=== PATIENT | female | born 1970 | race Asian ===

== ENCOUNTER → 2021-10-11 | Day surgery (SDC) | payer OTHER | END | disposition home or self-care (01) | LOC: FMAMMOTONE 10:42 | PROVIDERS: ATTEND Surgery | PROC: 0HBT3ZX Excision of Right Breast, Percutaneous Approach, Diagnostic (ICD-10-PCS; principal; 2021-10-11) | DX: D24.1 Benign neoplasm of right breast (principal); N60.91 Unspecified benign mammary dysplasia of right breast; N64.89 Other specified disorders of breast; R92.8 Other abnormal and inconclusive findings on diagnostic imaging of breast | CPT/HCPCS: 19081; 76098-TC-FY; 87899; 88305-TC; 88341-TC; 88342-TC; A4648 ==

== ENCOUNTER 2021-11-17 04:31 | Day surgery (SDC) | payer OTHER ==
[2021-11-16 15:26] VITALS: BMI 29.2
[2021-11-17] MEDS ORDERED: LIDOCAINE HCL 1%, 10 MG/ML (20ML VIAL) ONE (09:56)
[2021-11-17] MEDS ORDERED: MIDAZOLAM HCL 2 MG/2 ML SINGLE DOSE VIAL ONE ×2 (10:29)
[2021-11-17] MEDS ORDERED: PROPOFOL 20 ML ONE (10:29)
[2021-11-17] MEDS ORDERED: ceFAZolin SODIUM 1 GM VIAL IVPB ONE (10:48)
[2021-11-17] MEDS ORDERED: LIDOCAINE HCL 1%, 10 MG/ML (50 mL VIAL) INF ONE (10:53)
[2021-11-17] MEDS ORDERED: oxyCODONE HCL 5 MG TABLET PO PRN ×2 (11:44)
[2021-11-17] MEDS ORDERED: ONDANSETRON 4 MG/2 ML VIAL IVPUSH PRN (11:44)
[2021-11-17] MEDS ORDERED: LACTATED RINGERS SOLUTION 1,000 ML IV SCH (11:45)
[2021-11-17 14:04] VITALS: BP 140/83; PULSE 89; TEMP 97.6
== END 2021-11-17 14:30 | disposition home or self-care (01) ==
LOC: JASU-SURG 04:31
PROVIDERS: ATTEND Surgery
PROC: 0HBT0ZZ Excision of Right Breast, Open Approach (ICD-10-PCS; principal; 2021-11-17 10:00)
DX: D05.11 Intraductal carcinoma in situ of right breast (principal)
CPT/HCPCS: 19281; 76098-TC-FY; 81025; 88307-TC; 88341-TC; 88342-TC; 94760

== ENCOUNTER 2021-12-01 04:23 | Day surgery (SDC) | payer OTHER ==
[2021-11-30 17:33] VITALS: BMI 29.2
[2021-12-01] MEDS ORDERED: LIDOCAINE HCL 1%, 10 MG/ML (20ML VIAL) ONE ×2 (14:32→15:17)
[2021-12-01] MEDS ORDERED: PROPOFOL 20 ML ONE ×2 (14:59→15:25)
[2021-12-01] MEDS ORDERED: MIDAZOLAM HCL 2 MG/2 ML SINGLE DOSE VIAL ONE (15:00)
[2021-12-01] MEDS ORDERED: ceFAZolin SODIUM 1 GM VIAL ONE (15:03)
[2021-12-01] MEDS ORDERED: ceFAZolin 2 GRAM PREMIX BAG IVPB ONE (15:03)
[2021-12-01] MEDS ORDERED: LIDOCAINE HCL 1%, 10 MG/ML (20ML VIAL) INF ONE ×2 (15:04)
[2021-12-01] MEDS ORDERED: ONDANSETRON 4 MG/2 ML VIAL IVPUSH PRN (16:05)
[2021-12-01] MEDS ORDERED: PROMETHAZINE HCL 25 MG/1 ML VIAL IVPUSH PRN (16:05)
[2021-12-01] MEDS ORDERED: oxyCODONE HCL 5 MG TABLET PO PRN (16:05)
[2021-12-01] MEDS ORDERED: ACETAMINOPHEN 1000 MG/100 ML BAG IVPB ONE (16:06)
[2021-12-01] MEDS ORDERED: LACTATED RINGERS SOLUTION 1,000 ML IV SCH (16:15)
[2021-12-01 19:24] VITALS: BP 117/81; PULSE 83; TEMP 98
== END 2021-12-01 19:05 | disposition home or self-care (01) ==
LOC: JASU-SURG 04:23
PROVIDERS: ATTEND Surgery
PROC: 0HBT0ZZ Excision of Right Breast, Open Approach (ICD-10-PCS; principal; 2021-12-01 14:00)
DX: D05.11 Intraductal carcinoma in situ of right breast (principal)
CPT/HCPCS: 81025; 88304-TC; 88307-TC; 94760

== ENCOUNTER 2022-05-27 04:56 | Day surgery (SDC) | payer OTHER, BC ==
[2022-05-25 13:39] VITALS: BMI 29.2
[2022-05-27] MEDS ORDERED: LIDOCAINE 1%/EPI 1:100000 (20 ML MULTI DOSE VIAL) ONE (08:45)
[2022-05-27] MEDS ORDERED: MIDAZOLAM HCL 2 MG/2 ML SINGLE DOSE VIAL ONE (10:37)
[2022-05-27] MEDS ORDERED: PROPOFOL 20 ML ONE ×2 (10:44→11:03)
[2022-05-27] MEDS ORDERED: LIDOCAINE 1%/EPI 1:100000 (20 ML MULTI DOSE VIAL) IJ ONE ×2 (11:03)
[2022-05-27 12:36] VITALS: BP 134/81; PULSE 81; RESP 18; TEMP 97.2
[2022-05-27] MEDS ORDERED: ONDANSETRON 4 MG/2 ML VIAL IVPUSH PRN (12:58)
[2022-05-27] MEDS ORDERED: oxyCODONE HCL 5 MG TABLET PO PRN (12:58)
[2022-05-27] MEDS ORDERED: LACTATED RINGERS SOLUTION 1,000 ML IV SCH (13:00)
== END 2022-05-27 13:08 | disposition home or self-care (01) ==
LOC: JASU-SURG 04:56
PROVIDERS: ATTEND Surgery
PROC: 0HB7XZZ Excision of Abdomen Skin, External Approach (ICD-10-PCS; principal; 2022-05-27 10:00)
DX: L72.3 Sebaceous cyst (principal)
CPT/HCPCS: 81025; 88304-TC

== ENCOUNTER 2022-12-16 04:32 | Day surgery (SDC) | payer OTHER, BC ==
[2022-12-15 12:06] VITALS: BMI 27.1
[2022-12-16 10:48] VITALS: BP 126/83; PULSE 74; RESP 18; TEMP 98
== END 2022-12-16 10:37 | disposition home or self-care (01) ==
LOC: JASU-ENDO 04:32
PROVIDERS: ATTEND Internal Medicine Gastroenterology
PROC: 0DJD8ZZ Inspection of Lower Intestinal Tract, Via Natural or Artificial Opening Endoscopic (ICD-10-PCS; principal; 2022-12-16 09:00)
DX: Z12.11 Encounter for screening for malignant neoplasm of colon (principal); K64.8 Other hemorrhoids; K63.89 Other specified diseases of intestine